=== PATIENT | male | born 1985 | race Hispanic/Latino ===

== ENCOUNTER 2023-12-27 11:39 | Emergency (ER) | payer SELFPAY ==
[2023-12-27 12:14] LABS: Absolute Basophils 0.1 K/uL (0-0.5); Absolute Eosinophils 0.3 K/uL (0-0.5); Absolute Lymphocytes (CBC) 1.7 K/uL (0.7-4.9); Absolute Neutrophil 5.8 K/uL (1.8-8.0); Basophils % 1.3 % (0-1.3); Eosinophils % 3.3 % (0-4.4); Hematocrit 48.2 % (39.6-49.0); Hemoglobin 16.3 g/dL (13.6-17.9); Lymphocytes % 18.9 % (15.3-44.8); MCH 31.4 pg (27.0-35.0); MCHC 33.9 g/dL (32.0-36.0); MCV 92.8 fL (80-100); Monocytes % 11.2 % (3.3-12.3); Neutrophils % 65.3 % (41.7-73.7); Nucleated Red Blood Cells % 0.1 % (0-0); Platelets 329 thou/uL (152-406); RBC Red Blood Cell Count 5.19 M/uL (4.33-5.43)
[2023-12-27 12:20] LABS: PT Prothrombin Time 12.9 SECONDS (9.4-12.5); Protime INR 1.16
[2023-12-27] MEDS ORDERED: levoFLOXacin 750 MG TAB ONE (12:20)
[2023-12-27] MEDS ORDERED: LEVALBUTEROL 1.25 MG/3 ML NEB ONE (12:20)
[2023-12-27] MEDS ORDERED: IPRATROPIUM BROM 0.5MG/2.5ML ONE (12:20)
[2023-12-27] MEDS ORDERED: NA CHLORIDE 0.9% 1,000 ML ONE (12:21)
[2023-12-27] MEDS ORDERED: NA CHLORIDE 0.9% 500 ML ONE (12:21)
[2023-12-27 12:34] LABS: Albumin 3.7 g/dL (3.4-5.0); Albumin/Globulin Ratio 0.8 (1.1-1.8); Anion Gap 7.9 mEq/L (5.0-15.0); Bilirubin Direct 0.2 mg/dL (0-0.2); Bilirubin Indirect, Calculated 0.4 mg/dL (0.2-0.8); Bilirubin Total 0.6 mg/dL (0.2-1.0); Globulin 4.5 g/dL (2.3-3.5); Magnesium 1.9 mg/dL (1.6-2.4); Potassium 3.9 mEq/L (3.5-5.1); Protein, Total 8.2 g/dL (6.4-8.2); Troponin High Sensitivity 4.3 pg/mL (<58.9)
--- NOTE | 2023-12-27 12:39 | RAD REPORT ---
EXAMINATION: TWO VIEW CHEST XR CLINICAL INDICATION: Male, 38 years old. . [facility] MAIN Cough;Dyspnea Bed Name: 14 TECHNIQUE: 2 views of the chest was performed. COMPARISON: No prior exam. FINDINGS: The lungs are well inflated and clear. The heart is normal in size. No displaced fractures evident. IMPRESSION: No acute or significant abnormalities.
[2023-12-27 12:48] LABS: SARS-CoV-2 Antigen CONTROL BLUE LINE VIS/BG OK; SARS-CoV-2 Antigen Rapid Res Negative (Negative)
--- NOTE | 2023-12-27 14:01 | EDPHYS ---
Physician Documentation [facility] Name: Reg Winchester Age: 38 yrs Sex: Male : 1985 Arrival Date: 12/27/2023 Time: 11:39 Bed 14 Private MD: ED Physician Jese Lizarraga HPI: 12/26 13:53 This 38 yrs old Male presents to ER via Ambulatory with complaints of shaquille Breathing Difficulty. 13:53 The patient has shortness of breath with light activity. Onset: The symptoms/episode shaquille began/occurred 2 day(s) ago. Duration: The symptoms are continuous, and are unchanged since they started. The patient's shortness of breath is aggravated by coughing, light activity, supine position, is alleviated by nebulizer treatment, rest, application of supplemental oxygen. Associated signs and symptoms: Pertinent positives: non-productive cough, fever, nausea. Severity of symptoms: At their worst the symptoms were mild moderate in the emergency department the symptoms are unchanged. The patient has not experienced similar symptoms in the past. Historical: - Allergies: 11:54 Pineapple; ll1 - PMHx: 11:54 Hypertensive disorder; ll1 - PSHx: 11:54 None; ll1 - Immunization history:: Adult Immunizations up to date. - Infectious Disease History:: Denies. - Social history:: Smoking status: Patient denies any tobacco usage or history of. - Family history:: not pertinent. ROS: 13:53 Constitutional: Negative for fever, chills, and weight loss, Eyes: Negative for injury, shaquille pain, redness, and discharge, ENT: Negative for injury, pain, and discharge, Neck: Negative for injury, pain, and swelling, Cardiovascular: Negative for chest pain, palpitations, and edema, Abdomen/GI: Negative for abdominal pain, nausea, vomiting, diarrhea, and constipation, Back: Negative for injury and pain, : Negative for injury, bleeding, discharge, and swelling, MS/Extremity: Negative for injury and deformity, Skin: Negative for injury, rash, and discoloration, Neuro: Negative for headache, weakness, numbness, tingling, and seizure, Psych: Negative for depression, anxiety, suicide ideation, homicidal ideation, and hallucinations, Allergy/Immunology: Negative for hives, rash, and allergies, Endocrine: Negative for neck swelling, polydipsia, polyuria, polyphagia, and marked weight changes, Hematologic/Lymphatic: Negative for swollen nodes, abnormal bleeding, and unusual bruising, 13:53 Respiratory: Positive for cough, "sounds productive", Exam: 13:53 Constitutional: This is a well developed, well nourished patient who is awake, alert, shaquille and in no acute distress. Head/Face: Normocephalic, atraumatic. Eyes: Pupils equal round and reactive to light, extra-ocular motions intact. Lids and lashes normal. Conjunctiva and sclera are non-icteric and not injected. Cornea within normal limits. Periorbital areas with no swelling, redness, or edema. ENT: Nares patent. No nasal discharge, no septal abnormalities noted. Tympanic membranes are normal and external auditory canals are clear. Oropharynx with no redness, swelling, or masses, exudates, or evidence of obstruction, uvula midline. Mucous membranes moist. Neck: Trachea midline, no thyromegaly or masses palpated, and no cervical lymphadenopathy. Supple, full range of motion without nuchal rigidity, or vertebral point tenderness. No Meningismus. Chest/axilla: Normal chest wall appearance and motion. Nontender with no deformity. No lesions are appreciated. Cardiovascular: Regular rate and rhythm with a normal S1 and S2. No gallops, murmurs, or rubs. Normal PMI, no JVD. No pulse deficits. Abdomen/GI: Soft, non-tender, with normal bowel sounds. No distension or tympany. No guarding or rebound. No evidence of tenderness throughout. Back: No spinal tenderness. No costovertebral tenderness. Full range of motion. Male : Normal genitalia with no discharge or lesions. Skin: Warm, dry with normal turgor. Normal color with no rashes, no lesions, and no evidence of cellulitis. MS/ Extremity: Pulses equal, no cyanosis. Neurovascular intact. Full, normal range of motion. Neuro: Awake and alert, GCS 15, oriented to person, place, time, and situation. Cranial nerves II-XII grossly intact. Motor strength 5/5 in all extremities. Sensory grossly intact. Cerebellar exam normal. Normal gait. Psych: Awake, alert, with orientation to person, place and time. Behavior, mood, and affect are within normal limits. 13:53 Respiratory: the patient does not display signs of respiratory distress, Respirations: no acute changes, Breath sounds: bronchial sounds, that are mild, are scattered, decreased breath sounds, that are mild, are located in both bases, rhonchi, that are mild, are scattered, stridor, is not appreciated, + upper airway congestion. wheezing: expiratory Respiratory rate: 16 13:53 Musculoskeletal/extremity: ROM: no acute changes, intact in all extremities, Circulation is intact in all extremities. Pulses: Sensation intact. Compartment Syndrome exam of affected extremity: is normal. Weight bearing: able to fully bear weight, DVT Exam: No signs of deep vein thrombosis. no pain, no swelling, no tenderness, negative Homans' sign noted on exam, no appreciated bluish discoloration, no erythema, no increased warmth, Vital Signs: 11:56 BP 117 / 65; Pulse 109; Resp 18; Temp 97.5; Pulse Ox 96% on R/A; Pain 3/10; ll1 13:26 BP 124 / 90; Pulse 95; Resp 16 S; Pulse Ox 95% on R/A; kc6 11:56 Pain Scale: Adult ll1 MDM: 11:50 Patient medically screened. shaquille 13:59 Differential diagnosis: Anemia Anxiety Reaction asthma, Bronchitis CHF exacerbation, shaquille Chronic Obstructive Pulmonary Disease pneumonia, Pneumothorax pulmonary edema, reactive airway disease, Sepsis Unstable Angina. Antibiotic administration: The patient is discharged and will get outpatient antibiotics, Levaquin. Immunization status:. Data reviewed: vital signs, nurses notes, lab test result(s), CBC, electrolytes, EKG, radiologic studies, plain films. Consideration of Admission/Observation Escalation of care including admission/observation considered. I considered the following discharge prescriptions or medication management in the emergency department Medications were administered in the Emergency Department. See MAR. Independent interpretation of the following test(s) in the Emergency Department EKG: See my EKG interpretation above. Test considered but Not performed: CT: NO CT CHEST. Counseling: I had a detailed discussion with the patient and/or guardian regarding the historical points, exam findings, and any diagnostic results supporting the discharge/admit diagnosis, lab results, radiology results, the need for outpatient follow up. 12/26 11:51 Order name: Basic Metabolic Panel; Complete Time: 13:23 [facility] 12/26 11:51 Order name: CBC with Diff; Complete Time: 13:23 [facility] 12/26 11:51 Order name: LFT's; Complete Time: 13:23 [facility] 12/26 11:51 Order name: Magnesium; Complete Time: 13:23 [facility] 12/26 11:51 Order name: NT PRO-BNP; Complete Time: 13:23 [facility] 12/26 11:51 Order name: PT-INR; Complete Time: 13:23 [facility] 12/26 11:51 Order name: Troponin HS; Complete Time: 13:23 [facility] 12/26 11:51 Order name: Flu; Complete Time: 13:23 [facility] 12/26 11:51 Order name: SARS RAPID; Complete Time: 13:23 [facility] 12/26 12:03 Order name: Blood Culture Adult (2) 12/26 12:03 Order name: Chest Pa And Lat (2 Views) XRAY; Complete Time: 13:23 [facility] 12/26 11:51 Order name: EKG; Complete Time: 11:51 [facility] 12/26 11:51 Order name: Cardiac monitoring; Complete Time: 12:11 [facility] 12/26 11:51 Order name: EKG - Nurse/Tech; Complete Time: 12:11 [facility] 12/26 11:51 Order name: IV Saline Lock; Complete Time: 12:11 [facility] 12/26 11:51 Order name: Labs collected and sent; Complete Time: 12:11 [facility] 12/26 11:51 Order name: O2 Per Protocol; Complete Time: 12:11 [facility] 12/26 11:51 Order name: O2 Sat Monitoring; Complete Time: 12:11 [facility] Administered Medications: 12:30 Drug: Levalbuterol Inhalation 2.5 mg Inhalation once Route: Inhalation; me1 13:40 Follow up: Response: No adverse reaction kc6 12:30 Drug: Ipratropium Inhalation Aerosol 0.5 mg Inhalation once Route: Inhalation; me1 13:40 Follow up: Response: No adverse reaction kc6 12:45 Drug: NS 0.9% IV 1000 ml IV at 125 ml/hr continuous Route: IV; Rate: 125 ml/hr; Site: me1 left antecubital; 12:45 Drug: NS 0.9% IV 500 ml IV at bolus once Route: IV; Rate: bolus; Site: left antecubital;me1 13:39 Follow up: Response: No adverse reaction; IV Status: Completed infusion; IV Intake: kc6 500ml 12:45 Drug: LevOfloxacin PO 750 mg PO once Route: PO; me1 13:40 Follow up: Response: No adverse reaction kc6 Disposition Summary: 12/27/23 14:01 Discharge Ordered Notes: Location: Home [facility] Problem: new shaquille Symptoms: have improved shaquille Condition: Stable shaquille Diagnosis - Acute upper respiratory infection, unspecified shaquille - Cough shaquille - Acute bronchospasm shaquille Followup: shaquille - With: Private Physician - When: 2 - 3 days - Reason: Recheck today's complaints, Continuance of care, Re-evaluation by your physician Discharge Instructions: - Discharge Summary Sheet shaquille - Bronchospasm, Adult shaquille - Upper Respiratory Infection, Adult shaquille - Upper Respiratory Infection, Adult, [id number] shaquille - Bronchospasm, Adult, [id number] shaquille - Cough, Adult [facility] Forms: - Medication Reconciliation Form [facility] - Antibiotic Education shaquille - Prescription Opioid Use shaquille - Patient Portal Instructions [facility] - Leadership Thank You Letter [facility] Prescriptions: - albuterol sulfate 90 mcg/actuation Inhalation HFA Aerosol Inhaler - inhale 2 inhalation INHALATION route every 4 to 6 hours as needed for shortness shaquille of breath or wheezing; 1 unit; Refills: 0, Product Selection Permitted - Tessalon Perles 100 mg Oral capsule - take 2 capsule ORAL route every 8 hours As needed; 30 capsule; Refills: 0, [facility] Product Selection Permitted - Medrol (Hussain) 4 mg Oral Tablets, Dose Pack - take 1 tablet ORAL route as directed - follow package instructions; 1 packet; shaquille Refills: 0, Product Selection Permitted - levofloxacin 500 mg Oral tablet - take 1 tablet ORAL route once daily for 7 days; 7 tablet; Refills: 0, Product [facility] Selection Permitted Signatures: Dispatcher [employer] EDJese Miller MD MD cha Lewis, Lynsay RN RN ll1 Shasha Melgar RN RN kc6 Jody Hernandez RN RN me1 Corrections: (The following items were deleted from the chart) 12:07 11:51 Chest Single View+RAD.RAD.BRZ ordered. EDMS GONCALVES
--- NOTE | 2023-12-27 14:01 | ER ---
Nurse's Notes [facility] Name: Reg Winchester Age: 38 yrs Sex: Male : 1985 Arrival Date: 12/27/2023 Time: 11:39 Bed 14 Private MD: Diagnosis: Acute upper respiratory infection, unspecified;Cough;Acute bronchospasm Presentation: 12/26 11:56 Chief complaint: Patient states: Cough worse at night for 1 week. SOB started today ll1 after having a coughing fit. Coronavirus screen: Client denies travel out of the [place] in the last 14 days. difficulty breathing, shortness of breath, Client presents with at least one sign or symptom that may indicate coronavirus-19. Standard/surgical mask placed on the client. Ebola Screen: Patient denies travel to an Ebola-affected area in the 21 days before illness onset. Initial Sepsis Screen: Does the patient meet any 2 criteria? No. Patient's initial sepsis screen is negative. Does the patient have a suspected source of infection? No. Patient's initial sepsis screen is negative. Risk Assessment: Do you want to hurt yourself or someone else? Patient reports no desire to harm self or others. Onset of symptoms was December 20, 2023. 11:56 Method Of Arrival: Ambulatory 1 11:56 Acuity: JAZZY 3 ll1 Triage Assessment: 11:56 General: Appears uncomfortable, ill, Behavior is calm, cooperative, appropriate for ll1 age. Respiratory: Reports shortness of breath cough that is Onset: The symptoms/episode began/occurred yesterday, the patient has mild shortness of breath. Historical: - Allergies: 11:54 Pineapple; ll1 - PMHx: 11:54 Hypertensive disorder; ll1 - PSHx: 11:54 None; ll1 - Immunization history:: Adult Immunizations up to date. - Infectious Disease History:: Denies. - Social history:: Smoking status: Patient denies any tobacco usage or history of. - Family history:: not pertinent. Screenin:00 [facility] ED Fall Risk Assessment (Adult) History of falling in the last 3 months, kc6 including since admission No falls in past 3 months (0 pts) Confusion or Disorientation No (0 pts) Intoxicated or Sedated No (0 pts) Impaired Gait No (0 pts) Mobility Assist Device Used No (0 pt) Altered Elimination No (0 pt) Score/Fall Risk Level 0 - 2 = Low Risk. Abuse screen: Denies threats or abuse. Denies injuries from another. Nutritional screening: No deficits noted. Tuberculosis screening: No symptoms or risk factors identified. Assessment: 12:00 General: Appears in no apparent distress. comfortable, well groomed, well developed, kc6 Behavior is calm, cooperative, appropriate for age. Pain: Denies pain. Neuro: Level of Consciousness is awake, alert, obeys commands, Oriented to person, place, time, situation, Appropriate for age. Cardiovascular: Reports shortness of breath, Denies chest pain, Capillary refill < 3 seconds Rhythm is sinus rhythm. Respiratory: Reports shortness of breath on exertion cough that is Airway is patent Trachea midline Respiratory effort is even, unlabored, Respiratory pattern is regular, symmetrical, Breath sounds with wheezes bilaterally. GI: No signs and/or symptoms were reported involving the gastrointestinal system. : No signs and/or symptoms were reported regarding the genitourinary system. EENT: Reports nasal congestion. Derm: No signs and/or symptoms reported regarding the dermatologic system. Skin is intact, is healthy with good turgor, Skin is pink, warm \T\ dry. Musculoskeletal: No signs and/or symptoms reported regarding the musculoskeletal system. Circulation, motion, and sensation intact. Capillary refill < 3 seconds, Range of motion: intact in all extremities. 13:27 Reassessment: Patient appears in no apparent distress at this time. No changes from kc6 previously documented assessment. Patient and/or family updated on plan of care and expected duration. Pain level reassessed. Patient is alert, oriented x 3, equal unlabored respirations, skin warm/dry/pink. 14:13 Reassessment: Patient appears in no apparent distress at this time. No changes from kc6 previously documented assessment. Patient and/or family updated on plan of care and expected duration. Pain level reassessed. Patient is alert, oriented x 3, equal unlabored respirations, skin warm/dry/pink. Vital Signs: 11:56 BP 117 / 65; Pulse 109; Resp 18; Temp 97.5; Pulse Ox 96% on R/A; Pain 3/10; ll1 13:26 BP 124 / 90; Pulse 95; Resp 16 S; Pulse Ox 95% on R/A; kc6 11:56 Pain Scale: Adult ll1 ED Course: 11:42 Patient arrived in ED. mr 11:50 Jese Lizarraga MD is Attending Physician. shaquille 11:53 Arm band placed on. ll1 11:57 Triage completed. ll1 11:59 Shasha Melgar, RN is Primary Nurse. kc6 12:00 Patient has correct armband on for positive identification. Bed in low position. Call kc6 light in reach. Side rails up X 1. systems engineering manager on. Pulse ox on. NIBP on. Door closed. Noise minimized. Lights dimmed. Warm blanket given. Pillow given. 12:11 SARS RAPID Sent. bc6 12:11 Flu Sent. bc6 12:11 Basic Metabolic Panel Sent. bc6 12:11 CBC with Diff Sent. bc6 12:11 LFT's Sent. bc6 12:11 Magnesium Sent. bc6 12:11 NT PRO-BNP Sent. bc6 12:11 PT-INR Sent. bc6 12:11 Troponin HS Sent. bc6 12:12 Initial lab(s) drawn, by me, sent to lab. COVID swab sent to lab. Flu and/or RSV swab 6 sent to lab. Inserted saline lock: 20 gauge in left antecubital area, using aseptic technique. Blood collected. Flushed with 10 mL NS. 12:15 Chest Pa And Lat (2 Views) XRAY In Process Unspecified. EDMS 12:43 First set of blood cultures drawn by me, Second set of blood cultures drawn by hi. hi1 12:45 Blood Culture Adult (2) Sent. hi1 14:13 No provider procedures requiring assistance completed. IV discontinued, intact, kc6 bleeding controlled, No redness/swelling at site. Pressure dressing applied. Administered Medications: 12:30 Drug: Levalbuterol Inhalation 2.5 mg Inhalation once Route: Inhalation; hi1 13:40 Follow up: Response: No adverse reaction kc6 12:30 Drug: Ipratropium Inhalation Aerosol 0.5 mg Inhalation once Route: Inhalation; hi1 13:40 Follow up: Response: No adverse reaction 6 12:45 Drug: NS 0.9% IV 1000 ml IV at 125 ml/hr continuous Route: IV; Rate: 125 ml/hr; Site: hi1 left antecubital; 12:45 Drug: NS 0.9% IV 500 ml IV at bolus once Route: IV; Rate: bolus; Site: left antecubital;me1 13:39 Follow up: Response: No adverse reaction; IV Status: Completed infusion; IV Intake: kc6 500ml 12:45 Drug: LevOfloxacin PO 750 mg PO once Route: PO; me1 13:40 Follow up: Response: No adverse reaction kc6 Medication: 14:13 VIS not applicable for this client. kc6 Intake: 13:39 IV: 500ml; Total: 500ml. kc6 Outcome: 14:01 Discharge ordered by . shaquille 14:13 Discharged to Rehab Facility 6 14:13 Condition: good 14:13 Discharge instructions given to patient, Instructed on discharge instructions, follow up and referral plans. medication usage, Demonstrated understanding of instructions, follow-up care, medications, Prescriptions given X 4, 14:[address] [facility] Signatures: Dispatcher [employer] EDJese Miller MD MD cha Rivera, Mary, Reg Reg mr Dorene See, RN RN ll1 Shasha Melgar RN RN kc6 Shila Veloz6 Jody Hernandez RN RN me1
[2023-12-27 14:48] VITALS: TEMP 97.5
[2023-12-27 14:49] VITALS: BP 124/90; O2SAT 95
--- NOTE | 2023-12-29 12:27 | EKG ---
Test Date: 2023-12-27 Test Time: 12:08:59 Finish Filer: RAFAT MEASUREMENT RESULTS: Intervals: Rate: 99 AK: 158 QRSD: 98 QT: 352 QTc: 451 [place]: P: 52 AK: 158 QRS: 112 T: 42 INTERPRETIVE STATEMENTS: Normal sinus rhythm Normal ECG No previous ECG available for comparison Electronically Signed On 12-29-23 12:19:22 CDT by Haja [place]
== END 2023-12-27 14:13 | disposition home or self-care (01) ==
LOC: ER 11:39
DX: J06.9 Acute upper respiratory infection, unspecified (principal); J98.01 Acute bronchospasm; Z11.52 Encounter for screening for COVID-19
CPT/HCPCS: 36415; 71046; 80048; 80076; 83735; 83880; 84484; 85025; 85610; 87040; 87804; 87811; 93005; 96360; 99285; J7030; J7040; J7614; J7644